=== PATIENT | female | born 1990 | race Caucasian/White ===

== ENCOUNTER 2019-12-22 12:30 | Emergency (ER) | payer MEDICAID, OTHER ==
[~2019-12-22] VITALS: Ht 175.3 cm; Wt 99.1 kg
--- NOTE | 2019-12-22 12:37 | NUR ---
PHYSICIANS ASSISTANT: PT IN BATHROOM WHEN CALLED
[2019-12-22 12:42] VITALS: BP 126/69
--- NOTE | 2019-12-22 13:35 | NUR ---
D/C INSTRUCTIONS, MEDS & F/U APPT RV'WD WITH PT, SHE VERBALIZES UNDERSTANDING. RX GIVEN X1. PT AMBULATED OUT OF ED WITH WITHOUT DIFFICULTY.
== END 2019-12-22 13:41 | disposition home or self-care (01) ==
LOC: ED 13:30
DX: L02.01 Cutaneous abscess of face (principal); J45.909 Unspecified asthma, uncomplicated
CPT/HCPCS: 99283